=== PATIENT | female | born 1955 | race Caucasian/White ===

== ENCOUNTER 2019-06-29 17:16 | Outpatient (CLI) | payer BC | END 2019-06-29 17:17 | disposition critical access hospital (66) | LOC: EMS 17:16 | PROVIDERS: ATTEND Surgery | DX: R11.2 Nausea with vomiting, unspecified (principal); R19.7 Diarrhea, unspecified | CPT/HCPCS: A0425; A0427 ==

== ENCOUNTER 2019-06-29 17:33 | Emergency (ER) | payer BC ==
--- NOTE | 2019-06-29 18:17 | ED Physician Documentation ---
PD HPI NVD - Stated complaint Stated Complaint: N/V - Chief complaint Chief Complaint: Abd Pain - History obtained from History obtained from: Patient - History of Present Illness Timing - onset: How many hours ago (3-4), Today Timing - duration: Hours (3-4) Timing - details: Abrupt onset, Now resolved (she ate an egg salad sandwich for lunch and had onset abrupt nausea, vomiting, and diarrhea about an hour after. Her mother also ate some of it and is not sick that she knows of. Had diarrhea too. Was having repetitive vomiting and called EMS due to general weakness. Given Zofran enroute and IV fluids and is feeling quite improved soon after ED arrival.) Associated symptoms: Loss of appetite. No: Fever, Abdominal pain Contributing factors: Bad food (possibly). No: Sick contact, Travel, Recent antibiotics Similar symptoms before: Has not had sx before Review of Systems Constitutional: denies: Fever, Chills, Myalgias Nose: denies: Rhinorrhea / runny nose, Congestion Throat: denies: Sore throat Respiratory: denies: Cough GI: reports: Nausea, Vomiting, Diarrhea. denies: Abdominal Pain : denies: Dysuria, Frequency Neurologic: reports: Generalized weakness. denies: Focal weakness, Numbness, Near syncope PD PAST MEDICAL HISTORY - Past Medical History Past Medical History: Yes Cardiovascular: Hypertension Psych: Depression, Anxiety, Bipolar disorder - Past Surgical History Past Surgical History: No - Present Medications Home Medications: Ambulatory Orders Medication Instructions Recorded Confirmed Diphenoxylate/Atropine [Lomotil] 1 each PO QID PRN #12 tablet 06/29/19 Ondansetron Odt [Zofran] 4 mg TL Q6H PRN #10 tablet 06/29/19 - Allergies Allergies/Adverse Reactions: Allergies Allergy/AdvReac Type Severity Reaction Status Date / Time No Known Drug Allergies Allergy Verified 06/29/19 17:45 - Social History Does the pt smoke?: No Smoking Status: Never smoker Does the pt drink ETOH?: Yes Does the pt have substance abuse?: No - Immunizations Immunizations are current?: Yes PD ED PE NORMAL - Vitals Vital signs reviewed: Yes - General General: Alert and oriented X 3, No acute distress, Well developed/nourished - HEENT HEENT: Pharynx benign. No: Moist mucous membranes - Neck Neck: Supple, no meningeal sign, No adenopathy - Cardiac Cardiac: RRR, No murmur - Respiratory Respiratory: Clear bilaterally - Abdomen Abdomen: Normal bowel sounds, Soft, Non tender, Non distended - Derm Derm: Normal color, Warm and dry - Neuro Neuro: Alert and oriented X 3, No motor deficit, Normal speech Results - Vitals Vitals: Oxygen O2 Source Room air PD MEDICAL DECISION MAKING - ED course Complexity details: considered differential (likely food toxin or viral GE. Feeling better with EMS meds/fluids. Takes PO here and feels wanting to go. ), d/w patient Departure - Departure Disposition: Home, Self Care Clinical Impression: Nausea vomiting and diarrhea Condition: Stable Record reviewed to determine appropriate education?: Yes Instructions: ED Diet Vomiting Diarrhea Prescriptions: Diphenoxylate/Atropine [Lomotil] 1 each PO QID PRN #12 tablet PRN Reason: Diarrhea Ondansetron Odt [Zofran] 4 mg TL Q6H PRN #10 tablet PRN Reason: Nausea / Vomiting Comments: This is most likely to be food poisoning or stomach virus. Typically these are short limited 12 to 24 hours. Use ondansetron if needed for nausea and Lomotil if needed for diarrhea. Small frequent fluids at home. Recheck if not improved into tomorrow. Discharge Date/Time: 06/29/19 19:02
[2019-06-29] MEDS ORDERED: ONDANSETRON ODT 4 MG TABLET TL STA (18:36)
[2019-06-29] MEDS ORDERED: DIPHENOX/ATROPINE 2.5/0.025 MG TABLET PO STA (18:36)
[2019-06-29 19:02] VITALS: BP 104/74
== END 2019-06-29 19:02 | disposition home or self-care (01) ==
LOC: EDUNIT# → ED 17:33
DX: R11.2 Nausea with vomiting, unspecified (principal); R19.7 Diarrhea, unspecified; R53.1 Weakness; I10 Essential (primary) hypertension
CPT/HCPCS: 99282; 99284; A9270; Q0162